=== PATIENT | female | born 1960 | race Caucasian/White ===

== ENCOUNTER → 2017-07-01 09:47 | Outpatient (CLI) | payer OTHER, SELFPAY ==
--- NOTE | 2017-07-01 09:50 | US_ITS ---
STUDY: ABDOMINAL ULTRASOUND - RIGHT UPPER QUADRANT REASON FOR VISIT: Female, 57 years old. Right upper quadrant pain. TECHNIQUE: Ultrasound evaluation of the right upper quadrant was performed with real-time and static mas-scale imaging. TECHNICAL QUALITY: Adequate. COMPARISON: None. FINDINGS: Liver: The liver measures 11.8 cm. There is normal echogenicity of the liver. The bile ducts are within normal limits. There is hepatic color flow. The direction of portal flow is hepatopetal. There are liver cysts measuring 1.7 and 2.5 cm. Gallbladder: Normal distended gallbladder. The gallbladder wall measures 1.4 mm. There is a negative sonographic Valenzuela's sign. There is no pericholecystic fluid. There are no gallstones. Common Bile Duct (C.B.D.): The common bile duct measures 3 mm. Pancreas: Normal size of the head, body and tail of the pancreas. There is normal echogenicity of the pancreas. There is no demonstrated pancreatic mass or cyst. Right Kidney: Normal size of the right kidney. The right kidney measures 9.9 cm. Normal renal cortex. The right cortex measures 1.9 cm. There is no demonstrated renal mass or cyst. There is no right hydronephrosis. US/Gallbladder IMPRESSION: Incidental liver cysts, otherwise negative right upper quadrant ultrasound examination. Electronically Signed: Alexis Stevens MD at 16:22 EDT , Service support ,
== END ==
PROVIDERS: Family Provider Family Medicine; PCP Family Medicine; Visit Provider Family Medicine
DX: K76.89 Other specified diseases of liver (principal); R10.11 Right upper quadrant pain
CPT/HCPCS: 76705

== ENCOUNTER → 2017-07-12 08:20 | Outpatient (CLI) | payer OTHER, SELFPAY ==
--- NOTE | 2017-07-12 08:24 | NM_ITS ---
CLINICAL: 55-year-old female with reported history of chronic nausea and right upper quadrant abdominal pain. RADIONUCLIDE HEPATOBILIARY SCINTIGRAPHY COMPARISON: Abdominal ultrasound report 07/01/2017 FINDINGS: Following the intravenous administration of 5.2 mCi of 99m Tc Mebrofenin, hepatobiliary images reveal: 1. Relatively prompt and homogeneous radiopharmaceutical concentration is noted by a normal sized liver. No parenchymal defects are identified. 2. Gallbladder activity is identified at 30 minutes post radiopharmaceutical administration. 3. Small intestinal tract is observed at 60 minutes following tracer injection. 4. Washout of the radiopharmaceutical by the hepatic parenchyma appears qualitatively normal. The patient was administered a fatty meal (8 ounces BOOST-30 grams fat). The post fatty meal consumption gallbladder ejection fraction calculated at 60 minutes was noted to be 72.0 % (normal greater than 30%). [place]/Hepatobilliary Img w/Pharm Int IMPRESSION: 1. NORMAL 99m Tc Mebrofenin hepatobiliary imaging examination with fatty meal ingestion. A. A gallbladder ejection fraction calculated to be greater than 30% following the administration of a consumed fatty meal makes the probability of functional hepatobiliary disease (gallbladder and/or sphincter of Oddi dyskinesia) and/or organic hepatobiliary disease (chronic acalculous cholecystitis and/or cystic duct syndrome) to be low. (Joe and Jaime, J Nucl Med 43: 1603, 2002). Electronically Signed: Km Gallegos DO at 7:30 EDT Tel , Service support ,
== END ==
PROVIDERS: Family Provider Family Medicine; PCP Family Medicine; Visit Provider Family Medicine
DX: R10.11 Right upper quadrant pain (principal)
CPT/HCPCS: 78227; A9537

== ENCOUNTER 2018-04-03 04:02 | Emergency (ER) | payer OTHER, SELFPAY ==
[2018-04-03 04:03] VITALS: BP 147/94; PULSE 81; RESP 16; TEMP 36.3; O2SAT 97; BMI 25.9
--- NOTE | 2018-04-03 04:11 | EKG12_ITS ---
Test Reason : UPPER EXTREMITY PAIN Blood Pressure : / mmHG Vent. Rate : 061 BPM Atrial Rate : 061 BPM P-R Int : 154 ms QRS Dur : 092 ms QT Int : 420 ms P-R-T Axes : 047 052 030 degrees QTc Int : 422 ms Normal sinus rhythm Normal ECG Confirmed by MOLLY MCKEON, DHRUV ([id number]), international editorial producer NICHOLE VELEZ ([id number]) on 04/08/2018 2:44:55 PM Referred By: SUN Confirmed By:DHRUV BARNES MD
--- NOTE | 2018-04-03 04:36 | ED.VISSUMM ---
- ER Visit Summary Date of Service: 04/03/18 Chief Complaint: Right elbow pain History of Present Illness: The patient is a [address] Sera Kelley. She reports that she has right elbow pain that began approximate 1 hour ago. She states that it is a dull, aching pain that is 4-10 severity currently and at worst. Is worsened by nothing including movement or exertion. Is relieved by nothing. She denies any paresthesias or weakness distally. She is right-hand dominant. No recent trauma. No fall, MVA, or change in activity. Patient denies any chest pain or shortness of breath. She denies any chest pain or change in dyspnea exertion in the past month. No fatigue. No shoulder pain. States that she does have a family history of coronary artery disease and she was concerned that this may be her heart. Physical Examination: Vitals: Stable. Afebrile. General: Well-nourished and well-developed. Head: Normocephalic atraumatic. Neck: Supple, no lymphadenopathy. No JVD. Nontender. Cardiovascular: Regular rate and rhythm. No murmurs. Respiratory: No respiratory distress. Clear to auscultation bilaterally. Abdominal: Soft, nontender, nondistended, normal bowel sounds. No guarding, rebound, or peritoneal signs. Back: Nontender. Extremities: Nontender, no edema. Full range of motion of her right elbow without any difficulty or pain. There is no erythema or warmth to suggest infection. She has a 2+ radial pulse. She is neurovascular intact distal this. Skin: Normal color, no rash. Neurologic: Alert and oriented ?3. Cranial nerves II through XII are intact. Normal strength and sensation. Psych: Normal affect. Test Results: EKG is sinus at 61 with no acute changes. Emergency Department Course and Treatment: I did offer to do blood work. Patient chose to not have this done at this time. She denies any other recent symptoms. States that she had a stress test 1 year ago that was normal. Treatment Plan: I discussed with the patient anginal and equivalents including jaw pain, shoulder pain, shortness of breath, or fatigue. She is instructed to return to the emergency department for any of these. Follow-up with her primary care physician in 1 week if not improving. Disposition: To home in improved and stable condition. Impression: 1. Right elbow pain, uncertain cause. This note was generated with QuicklyChat dictation software. It may contain incorrect words, spelling, and punctuation that were not noted in review of the chart prior to signing ED Disposition - Plan for ED Patient: Disposition: Home or Assisted Living Chief Complaint: Upper Extremity Injury Instructions: What is Tennis Elbow? Referrals: Aleah West PA-C [Primary Care Provider] - 3-5 Days if not improving
[2018-04-03 04:43] VITALS: BP 127/84; PULSE 68; RESP 16; O2SAT 95
== END 2018-04-03 04:44 | disposition home or self-care (01) ==
LOC: ED 04:16
PROVIDERS: Emergency Provider Emergency Medicine; Family Provider Family Medicine; PCP Family Medicine
DX: M25.521 Pain in right elbow (principal)
CPT/HCPCS: 93005; 99282

== ENCOUNTER 2020-05-16 13:30 | Outpatient (RCR) | payer OTHER, SELFPAY ==
--- NOTE | 2020-04-29 15:38 | HP.PTEVAL_ITS ---
Patient's Visit Information HAKEEM PALMER is a 59 year old F referred to Physical Therapy by Aleah West PA-C with a diagnosis of Back pain with radiculopathy. Date of Evaluation: 04/29/20 Physical Therapist: Helder Trujillo, PT, Cert MDT, OCS - Visit Plan Frequency: 2x /Week Duration: 4 Weeks Plan: 2xs/week for 4 weeks per POC. PT Interventions: Core stabilization, LE/hip strengthening exercises, postural training, flexibility, ROM activities. - Subjective Patient is a 59 year old female presenting to the clinic with chronic low back pain. Pain is sporadic and not a constant pain. Pain is located in the middle of the low back. Lumbar extension triggers the pain. When her back gets aggravated she feels B LE get a numb and tingling feeling. Denies any numbness and tingling in LE at rest.States L LE aching from sleeping. Patient states she has always had difficulty with finding a comfortable position while sleeping. Patient states she has not been to PT in the past. Sits a lot at work which can increase back pain but does not always. Standing and walking can make back pain feel better. Denies any recent falls. Reports stairs are good and don't increase pain. X-rays show stable asymmetry of the R L5 pars; mild disc height loss at L2-3 and L4-5. 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 Palpation: No TTP; unremarkable. P osture: WFL. LE MMT: R hip flexion 5/5, quad 5/5, ham 5/5, DF 5/5, PF 5/5. L hip flexion 4+/5, quad 5/5, ham 5/5, DF 5/5, PF 5/5. Lumbar AROM: Flexion WFL, Extension 50%, R sidebend WFL, L sidebend WFL, R rotation WFL, L Rotation WFL. 90/90: WFL Bilaterally. Lumbar joint mobility: WNL (L4-5 produced patient's low back symptoms; no radicular symptoms) - Special Tests L/S Left Straight Leg Raise: Negative L/S Right Straight Leg Raise: Negative Lumbar Lying: Flexion - Mechanical Response: No effect Lumbar Lying: Flexion - Symptoms During Testing: Decreases Lumbar Lying: Flexion - Symptoms After Testing: Better Comments:: B knees to chest Lumbar Lying: Extension - Mechanical Response: No effect Lumbar Lying: Extension - Symptoms During Testing: Increases Lumbar Lying: Extension - Symptoms After Testing: Worse Comments:: Prone press up; Slightly increased symptoms in low back, did not produce LE - Goals Goal 1:: Patient will demonstrate lumbar extension to < 25 % limitation with no increase in low back pain for improved functional mobility. Goal Time Frame: 4-6 Weeks Goal 2:: Patient will demonstrate independence with HEP. Goal Time Frame: 4-6 Weeks Goal 3:: Patient will improve Oswestry (back) score by 5 or > points for improved QOL. Goal Time Frame: 4-6 Weeks Goal 4:: Patient will report no more than 2/10 pain and improved sleep quality for improved QOL. Goal Time Frame: 4-6 Weeks - Rehabilitation Potential Physical Therapy Diagnosis: Patient is a 59 year old female presenting to the clinic with chronic low back pain with radicular symptoms. Patient demonstrates mild limitation with lumbar ext which increases low back pain and causes LE symptoms. Demonstrates good LE strength bilaterally. Rehabilitation Potential: Good - Anticipated Interventions Patient/Client Instruction: Educate patient on: Condition For the Purpose of:: To decrease pain, To increase ROM, To improve muscle performance and motor function, To improve ability to perform ADL's, To increase tolerance to activity/condition/position, To improve ability of physical actions for home/community/work/leisure, To increase flexibility/ROM, To improve health and function, To improve self management, To improve ability to perform tasks related to life management, To improve tolerance to ADL's Therapeutic Exercise to Include: Strength training, Endurance training, Body me chanics, Postural training, Flexibilty training, Active ROM Comment: Core stabilization For the Purpose of:: To decrease pain, To increase ROM, To improve muscle performance and motor function, To improve ability to perform ADL's, To increase tolerance to activity/condition/position, To improve ability of physical actions for home/community/work/leisure, To increase flexibility/ROM, To improve endurance, To improve health and function, To improve ability to perform tasks related to life management, To improve tolerance to ADL's IF ES: Yes Other electric stimulation: Yes Cryotherapy (ice pack, ice massage): Yes Thermo therapy (hot pack): Yes For the Purpose of:: To decrease pain, To increase ROM, To improve muscle performance and motor function, To improve ability to perform ADL's, To improve ability of physical actions for home/community/work/leisure, To increase flexibility/ROM, To improve endurance, To improve health and function, To improve ability to perform tasks related to life management, To improve carlene erance to ADL's Thank you for the opportunity to evaluate your patient. For Medicare and Medicare HMO plans, please review the plan of care and approve it. It will need to be FAXED BACK to us at [phone] for Medicare purposes. For Medicare only, by signing this I certify the plan of care. Please let me know if there are questions or concerns regarding this plan of care. Physician Signature: Date:
--- NOTE | 2020-10-18 13:40 | HP.PTDCNRP_ITS ---
HAKEEM PALMER was seen in my office for initial evaluation on 04/29/20. The following Plan of Care was established for this patient: Initial Frequency: 2x /Week Initial Duration: 4 Weeks Patient/Client Instruction: Educate patient on: Condition For the Purpose of:: To decrease pain, To increase ROM, To improve muscle performance and motor function, To improve ability to perform ADL's, To increase tolerance to activity/condition/position, To improve ability of physical actions for home/community/work/leisure, To increase flexibility/ROM, To improve health and function, To improve self management, To improve ability to perform tasks related to life management, To improve tolerance to ADL's Therapeutic Exercise to Include: Strength training, Endurance training, Body mechanics, Postural training, Flexibilty training, Active ROM For the Purpose of:: To decrease pain, To increase ROM, To improve muscle performance and motor function, To improve ability to perform ADL's, To increase tolerance to activity/condition/position, To improve ability of physical actions for home/community/work/leisure, To increase flexibility/ROM, To improve endurance, To improve health and function, To improve ability to perform tasks related to life management, To improve tolerance to ADL's IF ES: Yes Other electric stimulation: Yes Cryotherapy (ice pack, ice massage): Yes Thermo therapy (hot pack): Yes For the Purpose of:: To decrease pain, To increase ROM, To improve muscle performance and motor function, To improve ability to perform ADL's, To improve ability of physical actions for home/community/work/leisure, To increase flexibility/ROM, To improve endurance, To improve health and function, To imp rove ability to perform tasks related to life management, To improve tolerance to ADL's This patient was last seen in our office . Pertinent comments regarding their Physical therapy will appear below: This patient was seen for back pain with radiculopathy focusing on DLS and postural ex's At this point I will be discontinuing this patient from physical therapy. I wou ld be happy to see this patient again in the future if found appropriate by the physician. Thank you! Helder Trujillo, PT, Cert MDT, OCS Balance/Gait/Functional tests - Balance/Special Test Scores Oswestry Low Back Score: 5
== END 2020-05-16 19:00 | disposition home or self-care (01) ==
LOC: PT 13:30
PROVIDERS: PCP Family Medicine; Referring Provider Family Medicine; Visit Provider Family Medicine
DX: M54.10 Radiculopathy, site unspecified (principal)
CPT/HCPCS: 97110; 97161